=== PATIENT | male | born 1975 | race Caucasian/White ===

== ENCOUNTER 2017-04-22 13:38 | Emergency (ER) | payer SELFPAY ==
[~2017-04-22] VITALS: Ht 177.8 cm; Wt 113.4 kg
[2017-04-22 14:44] LABS: Basophils # (auto) 0.1 uL; Basophils % (auto) 0.7 % (0.0-2.0); Eosinophils # (auto) 0.1 uL; Eosinophils % (auto) 0.9 % (0.0-7.0); Hematocrit 45.2 % (41.0-53.0); Hemoglobin 15.2 g/dL (13.5-17.5); Lymphocytes # (auto) 1.7 uL; Lymphocytes % (auto) 18.5 % (10.0-50.0); Mean Corpuscular Hemoglobin 27.9 pg (28.0-32.0); Mean Corpuscular Hgb Conc. 33.6 g/dL (32.0-36.0); Mean Corpuscular Volume 83.1 fL (80.0-100.0); Mean Platelet Volume 7.5 fL (6.9-10.8); Monocytes # (auto) 0.4 uL; Monocytes % (auto) 4.7 % (0.0-12.0); Neutrophils # (auto) 6.8 uL; Neutrophils % (auto) 75.2 % (37.0-80.0); Nucleated Red Blood Cells % 0.2 %; Platelet Count (auto) 284 10^3/uL (140-450); Red Cell Distribution Width 13.6 % (11.8-14.3); White Blood Cell 9.1 10^3/uL (4.4-10.8)
[2017-04-22] MEDS ORDERED: KETOROLAC TROMETH 60MG/2ML VIAL IM ONE (16:00)
[2017-04-22 16:26] VITALS: BP 160/91
== END 2017-04-22 16:32 | disposition home or self-care (01) ==
LOC: ER 13:38
DX: S90.561A Insect bite (nonvenomous), right ankle, initial encounter (principal); F17.210 Nicotine dependence, cigarettes, uncomplicated; W57.XXXA Bitten or stung by nonvenomous insect and other nonvenomous arthropods, initial encounter; Y93.89 Activity, other specified; Y92.89 Other specified places as the place of occurrence of the external cause; Y99.8 Other external cause status
CPT/HCPCS: 36415; 85025; 96372; 99283; J1885

== ENCOUNTER 2018-03-12 09:09 | Emergency (ER) | payer MEDICAID, OTHER ==
[~2018-03-12] VITALS: Ht 177.8 cm; Wt 117.9 kg
[2018-03-12 09:21] VITALS: BP 153/93
[2018-03-12] MEDS ORDERED: KETOROLAC TROMETH 60MG/2ML VIAL IM ONE (09:45)
== END 2018-03-12 10:24 | disposition home or self-care (01) ==
LOC: ER 09:09
DX: S83.92XA Sprain of unspecified site of left knee, initial encounter (principal); S76.912A Strain of unspecified muscles, fascia and tendons at thigh level, left thigh, initial encounter; F17.210 Nicotine dependence, cigarettes, uncomplicated; W01.0XXA Fall on same level from slipping, tripping and stumbling without subsequent striking against object, initial encounter; Y93.89 Activity, other specified; Y99.8 Other external cause status; Y92.89 Other specified places as the place of occurrence of the external cause
CPT/HCPCS: 73562; 96372; 99284; J1885

== ENCOUNTER 2019-06-14 11:22 | Emergency (ER) | payer MEDICAID ==
[~2019-06-14] VITALS: Ht 177.8 cm; Wt 102.1 kg
[2019-06-14 11:45] VITALS: BP 138/88
== END 2019-06-14 13:57 | disposition home or self-care (01) ==
LOC: ER 11:22
DX: K21.9 Gastro-esophageal reflux disease without esophagitis (principal); I10 Essential (primary) hypertension; M10.9 Gout, unspecified; F17.210 Nicotine dependence, cigarettes, uncomplicated; Z76.0 Encounter for issue of repeat prescription